=== PATIENT | female | born 1980 | race Caucasian/White ===

== ENCOUNTER 2018-10-17 13:21 | Emergency (ER) | payer MEDICAID, OTHER ==
--- NOTE | 2018-10-17 13:34 | EDM.PDOC ---
ED HPI GENERAL MEDICAL PROBLEM - General Chief Complaint: Upper Extremity Injury/Pain Stated Complaint: INJURED HAND Time Seen by Provider: 10/17/18 13:33 Source of Information: Reports: Patient History Limitations: Reports: No Limitations - History of Present Illness INITIAL COMMENTS - FREE TEXT/NARRATIVE: 38-year-old female who works at [employer] 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 This occurred approximately 1 PM today. She states she had immediate pain over the dorsal lateral aspect of her right hand. There was no open wound. Is normal sensation into the fingers. She reports the pain as a sore and sharp pain that she rates as an 8/10. It is worse with palpation and with movement of her hand. She is able to move her hand. There were no other injuries. There are no other associated signs or symptoms. There are no other modifying factors. 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) Right Hand Pain Score (Numeric/FACES): 8 - Related Data Allergies Allergy/AdvReac Type Severity Reaction Status Date / Time bee venom protein (honey bee) Allergy Swelling Verified 10/17/18 13:28 Home Meds: Home Meds Citalopram Hydrobromide [Celexa] 20 mg PO DAILY 10/17/18 [History] LORazepam [Ativan] 0.5 mg PO ASDIRECTED PRN 10/17/18 [History] Past Medical History Psychiatric History: Reports: Anxiety, Depression - Past Surgical History GI Surgical History: Reports: Appendectomy, Cholecystectomy Female Surgical History: Reports: Section (x 4), Tubal Ligation Musculoskeletal Surgical History: Reports: Arthroscopic Knee (Left knee) Social & Family History - Tobacco Use Smoking Status *Q: Unknown Ever Smoked (Nonsmoker) - Living Situation & Occupation Occupation: Employed (Works at [employer]) Review of Systems - Review of Systems Review Of Systems: See Below Constitutional: Reports: No Symptoms Eyes: Reports: No Symptoms Ears: Reports: No Symptoms Nose: Reports: No Symptoms Mouth/Throat: Reports: No Symptoms Respiratory: Reports: No Symptoms Cardiovascular: Reports: No Symptoms GI/Abdominal: Reports: No Symptoms Genitourinary: Reports: No Symptoms Musculoskeletal: Reports: Hand Pain (Right hand pain) Skin: Reports: No Symptoms Neurological: Reports: No Symptoms ED EXAM, GENERAL - Physical Exam Exam: See Below Exam Limited By: No Limitations General Appearance: Alert, WD/WN, Moderate Distress Eye Exam: Bilateral Eye: EOMI, Normal Inspection, PERRL Ears: Normal External Exam, Hearing Grossly Normal Ear Exam: Bilateral Ear: Auricle Normal Nose: Normal Inspection, Normal Mucosa, No Blood Throat/Mouth: Normal Inspection, Normal Oropharynx, Normal Voice, No Airway Compromise Head: Atraumatic, Normocephalic Neck: Normal Inspection, Supple, Non-Tender, Full Range of Motion Respiratory/Chest: No Respiratory Distress, Lungs Clear, Normal Breath Sounds, No Accessory Muscle Use, Chest Non-Tender Cardiovascular: Normal Peripheral Pulses, Regular Rate, Rhythm, No Murmur Peripheral Pulses: 2+: Radial (L), Radial (R) GI/Abdominal: Normal Bowel Sounds, Soft, Non-Tender, No Mass Back Exam: Normal Inspection Extremities: No Pedal Edema, Normal Capillary Refill, Other (Tender over the dorsal lateral right hand at the fourth and fifth metacarpophalangeal joint areas. Nontender elsewhere in the hand. No crepitus. No bony deformity noted.) Neurological: Alert, Oriented, CN II-XII Intact, Normal Cognition, No Motor/ Sensory Deficits Skin Exam: Warm, Dry, Intact, Normal Color, No Rash Course - Vital Signs Last Recorded V/S: Last Vital Signs Temp 36.8 C 10/17/18 13:32 Pulse 74 10/17/18 15:42 Resp 18 10/17/18 13:32 BP 133/90 10/17/18 15:42 Pulse Ox 100 10/17/18 13:32 - Orders/Labs/Meds Orders: Active Orders 24 hr Category Date Time Status Hand Comp Min 3V Rt [CR] Stat Exams 10/17/18 13:40 Taken - Radiology Interpretation Free Text/Narrative:: X-ray of right hand shows no definite fracture. - Re-Assessments/Exams Free Text/Narrative Re-Assessment/Exam: 10/17/18 15:33: The patient's x-ray showed no definite fracture. She appears to have a bruise to her right hand. She has difficulty using her right hand and I will give her clear to go to work tomorrow but restrictions of no use of her right hand for the next 3 days. She was placed in a Velcro hand, wrist and forearm splint and reported he only improved with this splint in place. She should use ibuprofen and Tylenol as needed for pain. She should follow-up with her primary doctor if her symptoms are persisting or she needs further duty status. Departure - Departure Time of Disposition: 15:35 Disposition: Home, Self-Care 01 Condition: Good (Stable) Clinical Impression: Contusion of right hand, initial encounter - Discharge Information Instructions: Contusion, [id number] Referrals: PCP,Not In Area [Primary Care Provider] - Forms: ED Department Discharge, ED Return to Work/School Form Additional Instructions: The x-ray of your right hand showed no definite fracture. You appear to have a bruise to your right hand. You should apply ice packs intermittently to your right hand for the next few days. Use the splint for comfort and support. No use of your right hand for the next 3 days. You are cleared to go back to work tomorrow with those restrictions. You may take ibuprofen and Tylenol as needed for pain. Back to the emergency department for marked increase in pain, redness , or swelling or any other concerning sign or symptom. - My Orders Last 24 Hours: My Active Orders 10/17/18 13:40 Hand Comp Min 3V Rt [CR] Stat - Assessment/Plan Last 24 Hours: My Active Orders 10/17/18 13:40 Hand Comp Min 3V Rt [CR] Stat
--- NOTE | 2018-10-18 08:36 | CR ---
INDICATION: Injury right hand with pain from 5th finger to wrist. RIGHT HAND: Three views of the right hand revealed no evidence of a fracture, dislocation, or other significant bone or joint abnormality. If an occult fracture site is suspected clinically - if symptoms persist - reexamination in 10-14 days may be helpful. MTDD
== END 2018-10-17 15:42 | disposition home or self-care (01) ==
LOC: FB.ED 13:21
DX: S60.221A Contusion of right hand, initial encounter (principal); F41.9 Anxiety disorder, unspecified; F32.9 Major depressive disorder, single episode, unspecified; Z91.030 Bee allergy status; Z79.899 Other long term (current) drug therapy; Z90.49 Acquired absence of other specified parts of digestive tract; Z98.51 Tubal ligation status; W23.1XXA Caught, crushed, jammed, or pinched between stationary objects, initial encounter
CPT/HCPCS: 73130-RT; 99283-25